=== PATIENT | female | born 2005 | race Two or more races ===

== ENCOUNTER 2025-01-12 21:17 | Emergency (ER) | payer MEDICAID, SELFPAY ==
[2025-01-12 21:18] VITALS: BMI 33.6
--- NOTE | 2025-01-12 21:37 | EDNOTE_ITS ---
ED OB Contraction Preg RMI/HPI General Chief complaint: Vaginal Bleeding Stated complaint: 3WKS PP WITH VAG BLEEDING AND PRESSURE Time Seen by Provider: 01/12/25 21:20 Arrival date/time: 01/12/25 21:17 RME / HPI RME / HPI Narrative: See [facility] for Dr. Henson's HPI documentation. Related Data Previous Rx's ?Medication ?Instructions ?Recorded cefdinir 300 mg capsule 300 mg PO BID #14 caps 01/13 hydrocodone 5 mg-acetaminophen 325 2 tab PO Q8H PRN pa in #10 tabs 01/13/25 mg tablet ketorolac 10 mg tablet 10 mg PO Q8H PRN pain 5 days #10 01/13/25 tabs ondansetron 4 mg disintegrating 4 mg PO TID PRN nausea and 01/13/25 tablet vomiting 30 days #10 tabs Allergies Allergy/AdvReac Type Severity Reaction Status Date / Time No Known Allergies Allergy Mild Uncoded 09/16/07 22:18 Review of Systems Review of Systems Systems Reviewed: All systems reviewed, normal except as documented ED Exam Narrative Physical exam: See [facility] for Dr. Henson's physical exam documentation. Course Quality Measures none Orders Category Date Time Status CT abdomen pelvis wo con Stat Exams 01/12/25 21:43 Completed US pelvic complete Stat Exams 01/12/25 22:18 Completed Bilirubin,Direct Stat Lab 01/12/25 22:04 Completed Blood Culture (Lab) Stat Lab 01/12/25 22:04 Received CBC Stat Lab 01/12/25 22:04 Completed CMP [Comprehensive Metabolic Panel] Stat Lab 01/12/25 22:04 Completed CRP [C-Reactive Protein] Stat Lab 01/12/25 22:04 Completed ESR [Sed Rate (ESR)] Stat Lab 01/12/25 22:04 Completed Lactate (Lactic Acid) Stat Lab 01/12/25 22:04 Completed Lipase Stat Lab 01/12/25 22:04 Completed Magnesium Stat Lab 01/12/25 22:04 Completed Procalcitonin Stat Lab 01/12/25 22:04 Completed TSH [Thyroid Stimulating Hormone] Stat Lab 01/12/25 22:04 Completed UA, C/S IF [Urinalysis, C/S if Indicated] Stat Lab 01/12/25 22:44 Completed Urine Culture Stat Lab 01/12/25 22:44 Received HYDROcodone*/APAP 5/325 [[place] 5/325] Med 01/12/25 21:42 Discontinued 2 tab PO X1 ONE Ondansetron Odt [Zofran Odt] Med 01/12/25 21:42 Discontinued 4 mg PO X1 ONE cefTRIAXone [Rocephin] 1,000 mg Med 01/13/25 00:07 Discontinued Lidocaine 1% 20 ml [Xylocaine 1% 20 ML] 2.1 ml IM X1 Vital Signs Vital signs: Vital Signs Temperature 98.2 F 01/12/25 21:38 Pulse Rate 80 01/12/25 21:38 Respiratory Rate 18 01/12/25 21:38 Blood Pressure 112/77 01/12/25 21:38 Pulse Oximetry (%) 97 01/12/25 21:38 Oxygen Delivery Method Room Air 01/12/25 21:38 Vaginal Bleeding MDM Narrative MDM Narrative: This section includes all my notes and documentations, including HPI, PE, and ED course. Deshawn Henson MD HPI: 19yo female who is 3 weeks (12/25/24) here with lower abdominal pain, nausea, and vaginal spotting since yesterday. No vomiting or fever. No other complaints reported. ROS: All negative except as documented in HPI. Physical Exam: General: Alert and oriented. No acute distress when remaining still. Eyes: Conjunctivae and lids clear. ENT: No nasal congestion. Neck: Supple. Heart: RRR. Lungs: No respiratory distress. Good air movement. No rhonchi, wheezing, rales. Abdomen: Soft with suprapubic tenderness. Normal bowel sounds. No distension. No rebound or guarding. Back: No CVA tenderness. Skin: Warm and dry. Neuro: Alert and oriented X 3. I reviewed all diagnostic test results. My review of the pelvic US report is NAD. My review of the CT abdomen pelvis report is NAD. Blood tests unremarkable. UA remarkable for positive leukocyte esterase, 12 RBCs, 70 WBCs, and bacteria. At this point, diagnoses include: UTI Treatment here included: [place] Zofran Rocephin Recommend outpatient management. Based on my best medical judgment, made decision no further evaluation or treatment indicated at this time. Patient understands and agrees to the discharge instructions customized and printed, see below. Discharge instructions from Dr. Henson: 1. After evaluation, you have severe cystitis (bladder infection). 2. Take cefdinir to kill the germs causing the infection. 3. For good hydration, increase oral fluid and maintain clear urine. If dark or yellow, increase oral fluid. Zofran for nausea/vomiting. Toradol and [place] for pain. 4. See a private doctor on 01/16/2025 for recheck. Ask to check the final urine culture results from today to make sure cefdinir doesn't need to be changed due to resistance. 5. Seek immediate medical care with worsening, fever, or with any concerns. Deshawn Henson MD Patient data External records reviewed:: [facility] previous records (Per chart review, patient has no previous ED visits or admissions to this facility.) Clinical information provided by:: patient Social determinants that could affect healthcare access:: none Patient has the following chronic illnesses:: none How is presenting disease/condition affected by chronic disease/condition?: no chronic disease Evaluation data The following diagnostics were reviewed and interpreted by me:: lab results and radiology exam(s) Lab and/or radiology exams considered but not ordered:: none Interpretation Summary: I reviewed all diagnostic test results. My review of the pelvic US report is NAD. My review of the CT abdomen pelvis report is NAD. Blood tests unremarkable. UA remarkable for positive leukocyte esterase, 12 RBCs, 70 WBCs, and bacteria. Medications / Prescriptions Medications or Prescriptions considered but not ordered:: none Medication administrations:: Medication Administration History Discontinued Medications Hydrocodone Bitart/Acetaminophen (Hydrocodone/Apap 5/325 Tablet) 2 tab PO X1 ONE Stop: 01/12/25 21:43 Last Admin: 01/12/25 22:00 Dose: 2 tab Documented By: CHITRA Ceftriaxone Sodium 1,000 mg/ (Lidocaine HCl 2.1 ml) 0 mg IM X1 ONE Stop: 01/13/25 00:08 Last Admin: 01/13/25 00:14 Dose: 1,000 mg Documented By: CHITRA Comments: Ondansetron HCl (Ondansetron Odt 4 Mg Tabrap) 4 mg PO X1 ONE; Protocol Stop: 01/12/25 21:43 Last Admin: 01/12/25 22:01 Dose: 4 mg Documented By: CHITRA Epstein Zofran Rocephin Consultations Consultation(s) initiated? (list below): No Diagnosis Vaginal Bleeding Differential Diagnosis: dysfunctional uterine bleeding and other (UTI, pyelonephritis, appendicitis, ovarian torsion, complication) Most likely diagnosis given after review of the tests above:: UTI Admission Indicated Admission indicated?: not indicated Explain why admission is indicated or not indicated:: With significant improvement and no condition needing emergent intervention, there was no indication for admission. Admission Request Was there a request for admission?: No Disposition Plan Disposition Plan: Discharge Discharge Attestation Discharge Attestation: The patient and all family members were given an opportunity to ask questions and understood the discharge instructions. Discharge instructions specifically effects, indications for sooner follow up or return to the emergency department, and the expected course of current diagnosis. Patient condition: Stable Discharge Plan Plan Patient Disposition: HOME (Self Care) Prescriptions/Referrals Prescriptions/Med Rec: New hydrocodone-acetaminophen 5-325 mg tablet 2 tab PO Q8H MDD 6 PRN (Reason: pain) Qty: 10 0RF ketorolac 10 mg tablet 10 mg PO Q8H PRN (Reason: pain) 5 Days Qty: 10 0RF ondansetron 4 mg tablet,disintegrating 4 mg PO TID PRN (Reason: nausea and vomiting) 30 Days Qty: 10 0RF cefdinir 300 mg capsule 300 mg PO BID Qty: 14 0RF Referrals: Temporary Provider,ED [Physician, Emergency Medicine] - In 1 week Problem List Clinical Impression: UTI (urinary tract infection) Patient/Caregiver Discharge Instructions Discharge Activity: activity as tolerated Education Materials: ED CYSTITIS Female Adult Additional Instructions: Discharge instructions from Dr. Henson: 1. After evaluation, you have severe cystitis (bladder infection). 2. Take cefdinir to kill the germs causing the infection. 3. For good hydration, increase oral fluid and maintain clear urine. If dark or yellow, increase oral fluid. Zofran for nausea/vomiting. Toradol and [place] for pain. 4. See a private doctor on 01/16/2025 for recheck. Ask to check the final urine culture results from today to make sure cefdinir doesn't need to be changed due to resistance. 5. Seek immediate medical care with worsening, fever, or with any concerns. Print Language: Occitan Stand Alone Forms: Effie Award Info., Patient Portal Info Letter
[2025-01-12 21:38] VITALS: BP 112/77; PULSE 80; RESP 18; TEMP 36.8; O2SAT 97
--- NOTE | 2025-01-12 21:43 | XR_ITS ---
Examination: CT abdomen and pelvis without contrast. Coronal 3-D reconstructions. Sagittal 2-D reconstructions. Date and time of exam:January 12, 2025, 2221 hrs. Indications: 3 weeks with vaginal bleeding and pressure nausea vomiting abdominal pain CTDI: vol (mGy): 10.5 DLP: (mGycm): 570 Technique: Axial images of the abdomen have been obtained, 3 mm slice thickness Intravenous contrast material has not been administered. Low dose protocols were performed. One or more of the following dose reduction techniques were used; automated exposure control, adjustment of the mA and/or KV according to patient size, use of iterative reconstruction technique. Findings: No focal liver or splenic lesion Contracted gallbladder No pancreatic or adrenal mass No renal or ureteral calculi, no hydronephrosis Aorta normal size enlarged uterus, no pelvic hematoma Mild thickening of the anterior urinary bladder image 193 Osseous structures intact No pericecal inflammatory change Impression: No renal or ureteral calculi, no hydronephrosis No CT findings of appendicitis bowel obstruction or diverticulitis enlarged uterus Cystitis pattern
[2025-01-12] MEDS: HYDROcodone/APAP 5/325 TABLET 2 TAB PO (22:00)
[2025-01-12] MEDS: ONDANSETRON ODT 4 MG TABRAP PO (22:01)
--- NOTE | 2025-01-12 22:18 | XR_ITS ---
Examination: Pelvic ultrasound, transabdominal, complete Technique: Transabdominal ultrasound of the pelvis performed using grayscale imaging Date and time of exam: January 12, 2025 1106 hrs. Indications: Pelvic pain and vaginal bleeding beginning 3 weeks ago Findings: Uterus 15.3 cm no retained products of conception or intrauterine gestation Endometrial stripe 0.3 cm Right ovary 2.8 cm arterial flow Left ovary 2.2 cm arterial flow Impression: No intrauterine gestation or retained products of conception
[2025-01-12 22:19] LABS: Lactate (Lactic Acid) 1.2 mMol/L (0.4-2.0)
[2025-01-12 22:24] LABS: Basophils # (Auto) 0.0 Thou/mm3 (0.0-0.2); Basophils % (Auto) 0 % (0-2.5); Eosinophils # (Auto) 0.2 Thou/mm3 (0.0-0.5); Eosinophils % (Auto) 2 % (0-10); Hematocrit 42.9 % (36.0-46.0); Hemoglobin 13.8 g/dL (12.0-16.0); Immature Granulocytes Auto 0.02 Thou/mm3 (0.00-0.00); Lymphocytes # (Auto) 2.9 Thou/mm3 (1.0-4.8); Lymphocytes % (Auto) 30 % (10-50); Mean Corpuscular HGB Conc 32.2 g/dl (31.0-37.0); Mean Corpuscular Hemoglobin 27.0 pg (25.0-35.0); Mean Corpuscular Volume 84 fL (80-100); Monocytes # (Auto) 0.7 Thou/mm3 (0.0-0.8); Monocytes % (Auto) 7 % (0-12); Neutrophils # (Auto) 5.9 Thou/mm3 (1.8-7.7); Neutrophils % (Auto) 61 % (37-80); Nucleated Red Blood Cell # 0.00 Thou/mm3 (0.00-0.00); Nucleated Red Blood Cell % 0 /100 WBC (0); Platelet Count 389 Thou/mm3 (140-440); RDW Standard Deviation 39.8 fL (36.4-46.3); Red Blood Count 5.11 Miln/mm3 (4.00-5.20); White Blood Count 9.7 Thou/mm3 (3.6-11.0)
[2025-01-12 22:53] LABS: Sed Rate (ESR) 26 mm/hr (0-20)
[2025-01-12 23:04] LABS: Collection Type, Urine Clean Catch
[2025-01-12 23:06] LABS: Alanine Aminotransferase 48 U/L (10-49); Albumin, Serum 4.7 gm/dL (3.5-5.0); Albumin/Globulin Ratio 1.6 (1.2-2.2); Alkaline Phosphatase 119 U/L (46-116); Anion Gap 10 (7-16); Aspartate Amino Transferase 29 U/L (0-34); BUN/Creatinine Ratio 10 Ratio (12-20); Bilirubin,Direct < 0.1 mg/dL (0.0-0.3); Bilirubin,Total 0.2 mg/dL (0.3-1.2); Blood Urea Nitrogen 10 mg/dL (9-23); C-Reactive Protein 1.4 mg/dL (0.0-0.9); Calcium 9.8 mg/dL (8.3-10.6); Calcium (Corrected) 9.8 mg/dL (8.5-10.1); Carbon Dioxide 26.6 mMol/L (20.0-31.0); Chloride 106 mMol/L (98-107); Creatinine (Component) 1.0 mg/dL (0.6-1.3); Estimated Creatinine Clearance 89.1 mL/min (>60); Globulin 3.0 gm/dL (2.3-3.5); Glucose 81 mg/dL (74-106); Lipase 36 U/L (12-53); Magnesium 2.0 mg/dL (1.6-2.6); Osmolality,Calculated 282 (275-295); Potassium 4.2 mMol/L (3.4-5.1); Procalcitonin < 0.04 ng/ml (0.0-0.49); Sodium 143 mMol/L (136-145); Thyroid Stimulating Hormone 3.19 uIU/mL (0.55-4.78); Total Protein 7.7 gm/dL (5.7-8.2); eGFR > 60 See Note
[2025-01-12 23:21] LABS: Bacteria,Urine Rare; Bilirubin,Urine Negative (Negative); Blood,Urine Trace (Negative); Clarity,Urine Clear (Clear/Hazy); Color,Urine Lt-Yellow (Lt Yel-Yel); Glucose, Urine Negative (Negative); Ketones,Urine Negative (Negative); Leukocyte Esterase,Urine Positive (Negative); Nitrite,Urine Negative (Negative); PH,Urine 5.5 (5.0-7.0); Protein,Urine Negative (Neg - Trace); RBC,Urine 12 /hpf (0-3); Specific Gravity,Urine 1.015 (1.001-1.035); Squamous Epithelial Cell,Urine 3 /hpf (0-5); Urobilinogen,Urine Negative mg/dL (0.0-1.0); WBC,Urine 70 /hpf (0-5)
[2025-01-12 23:22] LABS: Culture Indicated,Urine Yes
[2025-01-13] MEDS: cefTRIAXone 1,000 MG, LIDOCAINE 1% 20 ML 2.1 ML IM (00:14)
[2025-01-13 00:18] VITALS: BP 116/76; PULSE 70; RESP 16; TEMP 36.7; O2SAT 98
== END 2025-01-13 00:19 | disposition home or self-care (01) ==
PROVIDERS: Emergency Provider Emergency Medicine; PCP Family Medicine
DX: O23.41 Unspecified infection of urinary tract in pregnancy, first trimester (principal); N39.0 Urinary tract infection, site not specified; Z3A.01 Less than 8 weeks gestation of pregnancy
CPT/HCPCS: 36415; 74176; 76856; 80053; 81001; 82248; 83605; 83690; 83735; 84145; 84443; 85025; 85652; 86140; 87040; 87086; 96372; 99284; J0696; J3490; Q0162; A9270

== ENCOUNTER 2025-01-13 14:10 | Emergency (ER) | payer MEDICAID, SELFPAY ==
[2025-01-13 14:16] VITALS: BP 115/74; PULSE 94; RESP 20; TEMP 37; O2SAT 96; BMI 35.8
--- NOTE | 2025-01-13 14:36 | EDNOTE_ITS ---
<Statement entered by Laura Ferraro MD - 01/14/25 16:02> As co-signing physician, I was present and available for consult prn. I concur with the plan and care as documented by the midlevel provider. ED Female Urogenital RME/HPI General Chief complaint: General Adult/Misc Complain Stated complaint: PHARMACY TOLD PT TO COME TO ER FOR ANOTHER SHOT Time Seen by Provider: 01/13/25 14:20 Source: patient Arrival date/time: 01/13/25 14:10 19-year-old female with no known medical history presents to the emergency room after her pharmacy told her to come to the emergency room for another shot medication since I did not have a prescription for Toradol. Mode of arrival: ambulatory Limitations: no limitations Related Data Previous Rx's ?Medication ?Instructions ?Recorded cefdinir 300 mg capsule 300 mg PO BID #14 caps 01/13 hydrocodone 5 mg-acetaminophen 325 2 tab PO Q8H PRN pa in #10 tabs 01/13/25 mg tablet ketorolac 10 mg tablet 10 mg PO Q8H PRN pain 5 days #10 01/13/25 tabs ondansetron 4 mg disintegrating 4 mg PO TID PRN nausea and 01/13/25 tablet vomiting 30 days #10 tabs Allergies Allergy/AdvReac Type Severity Reaction Status Date / Time No Known Allergies Allergy Verified 01/13/25 14:47 Review of Systems Review of Systems Systems Reviewed: All systems reviewed, normal except as documented Constitutional Constitutional: Reports system reviewed and no additional complaints, except as documented, Denies fatigue, Denies fever(s), Denies headache(s) and Denies weakness Eyes Eyes: Reports system reviewed and no additional complaints, except as documented, Denies blurry vision and Denies change in vision ENT Ears, Nose, Mouth, and Throat: Reports system reviewed and no additional complaints, except as documented, Denies otalgia, Denies headache(s), Denies nasal congestion, Denies throat swelling and Denies vertigo Cardiovascular Cardiovascular: Reports system reviewed and no additional complaints, except as documented, Denies chest pain, Denies dyspnea and Denies dyspnea on exertion Respiratory Respiratory: Reports system reviewed and no additional complaints, except as documented, Denies chest congestion, Denies cough, Denies dyspnea, Denies dyspnea on exertion and Denies wheezing Gastrointestinal Gastrointestinal: Reports system reviewed and no additional complaints, except as documented, Denies abdominal pain, Denies cramping, Denies nausea and Denies vomiting Genitourinary Genitourinary: Reports system reviewed and no additional complaints, except as documented and Reports dysuria Musculoskeletal Musculoskeletal: Reports system reviewed and no additional complaints, except as documented and Denies back pain Integumentary/Breasts Skin/Breast: Reports system reviewed and no additional complaints, except as documented and Denies wounds Neurologic Neurologic: Reports system reviewed and no additional complaints, except as documented, Denies confusion, Denies headache(s), Denies lack of coordination, Denies vertigo and Denies weakness Psychiatric Psychiatric: Reports system reviewed and no additional complaints, except as documented, Denies anxiety, Denies confusion, Denies depression, Denies paranoia, Denies suicidal ideation and Denies tactile hallucinations Endocrine Endocrine: Reports system reviewed and no additional complaints, except as documented and Denies fatigue Hematologic/Lymphatic Hematologic/Lymphatic: Reports system reviewed and no additional complaints, except as documented and Denies lymphadenopathy Allergic/Immunologic Allergic/Immunologic: Reports system reviewed and no additional complaints, except as documented, Denies throat swelling, Denies urticaria and Denies wheezing Past Medical History Social History SMOKING STATUS: Never smoker ED Exam General Limitations: Present no limitations General appearance: Present alert and in no apparent distress Head Head exam: Present atraumatic Eye Eye exam: Present normal appearance, PERRL and EOMI ENT ENT exam: Present normal exam, normal oropharynx and mucous membranes moist Neck Neck exam: Present normal inspection, full ROM and trachea midline Chest Chest inspection: Present normal inspection and symmetric chest wall rise Respiratory Respiratory exam: Present normal lung sounds bilaterally Cardiovascular Cardiovascular exam: Present regular rate, normal rhythm and normal heart sounds Abdominal Exam Abdominal exam: Present soft and normal bowel sounds Extremities Exam Extremities exam: Present normal inspection and full ROM Back Exam Back exam: Present normal inspection and full ROM Neurological Exam Neurological exam: Present alert, oriented X3 and CN II-XII intact Psychiatric Psychiatric exam: Present normal affect and normal mood Skin Skin exam: Present warm, dry, intact and normal color Course Quality Measures none Orders Category Date Time Status cefTRIAXone [Rocephin] 1,000 mg Med 01/13/25 14:36 Discontinued Lidocaine 1% 20 ml [Xylocaine 1% 20 ML] 2.1 ml IM X1 Vital Signs Vital signs: Vital Signs Temperature 98.6 F 01/13/25 14:16 Pulse Rate 94 01/13/25 14:16 Respiratory Rate 20 01/13/25 14:16 Blood Pressure 115/74 01/13/25 14:16 Pulse Oximetry (%) 96 01/13/25 14:16 Oxygen Delivery Method Room Air 01/13/25 14:16 Urogenital - Female MDM Narrative MDM Narrative:: 19-year-old female with no known medical history presents to the emergency room after her pharmacy told her to come to the emergency room for another shot medication since I did not have a prescription for Toradol. Patient is hemodynamically stable and in no apparent distress Patient states she was sent to the emergency room by the pharmacy after they did not have any Toradol medication in stock as well as cefdinir in stock. Patient states she was able to go to [facility] to get her cefdinir. A shot of Rocephin was given and the patient was discharged. Patient was educated to sweet pickle maker her antibiotics and pain medication for her UTI diagnosis Patient was discharged and educated to follow-up with primary care provider in the next 24 to 48 hours and return to the emergency room for any evidence of worsening signs or symptoms Patient data External records reviewed:: [facility] previous records Clinical information provided by:: patient Social determinants that could affect healthcare access:: none Patient has the following chronic illnesses:: No chronic illness How is presenting disease/condition affected by chronic disease/condition?: no chronic disease Evaluation data The following diagnostics were reviewed and interpreted by me:: lab results and radiology exam(s) Lab and/or radiology exams considered but not ordered:: Labs and radiology exams considered and ordered Interpretation Summary: N/A Medications / Prescriptions Medications or Prescriptions considered but not ordered:: Medication given Medication administrations:: Medication Administration History Discontinued Medications Ceftriaxone Sodium 1,000 mg/ (Lidocaine HCl 2.1 ml) 0 mg IM X1 ONE Stop: 01/13/25 14:37 Last Admin: 01/13/25 15:13 Dose: 350 mg Documented By: OA Medication given Consultations Consultation(s) initiated? (list below): No Diagnosis Urogenital Female Differential Diagnosis: urinary tract infection, bacterial vaginosis, vaginitis and other (Urinary tract infection) Most likely diagnosis given after review of the tests above:: Urinary tract infection Admission Indicated Admission indicated?: not indicated Admission Request Was there a request for admission?: No Disposition Plan Disposition Plan: Discharge Discharge Attestation Discharge Attestation: The patient and all family members were given an opportunity to ask questions and understood the discharge instructions. Discharge instructions specifically effects, indications for sooner follow up or return to the emergency department, and the expected course of current diagnosis. Patient condition: Stable Discharge Plan Plan Patient Disposition: HOME (Self Care) Discharge Disposition comment: Stable Prescriptions/Referrals Prescriptions/Med Rec: No Action hydrocodone-acetaminophen 5-325 mg tablet 2 tab PO Q8H MDD 6 PRN (Reason: pain) Qty: 10 0RF ketorolac 10 mg tablet 10 mg PO Q8H PRN (Reason: pain) 5 Days Qty: 10 0RF ondansetron 4 mg tablet,disintegrating 4 mg PO TID PRN (Reason: nausea and vomiting) 30 Days Qty: 10 0RF cefdinir 300 mg capsule 300 mg PO BID Qty: 14 0RF Problem List Clinical Impression: UTI (urinary tract infection) Patient/Caregiver Discharge Instructions Education Materials: ED CYSTITIS Female Adult Additional Instructions: Please follow-up with your primary care provider in the next 24 to 48 hours Please take the antibiotics that were prescribed to you For any evidence of worsening signs or symptoms return to the emergency room immediately Print Language: Persian Stand Alone Forms: Effie Award Info., Work/School Release, Patient Portal Info Letter SANDIP/LOR Supervising Physician SANDIP/LOR Supervising Physician: Dr. FERRARO
[2025-01-13] MEDS: cefTRIAXone 1,000 MG, LIDOCAINE 1% 20 ML 2.1 ML IM (15:13)
== END 2025-01-13 15:42 | disposition home or self-care (01) ==
LOC: SERX 15:19
PROVIDERS: Emergency Provider Emergency Medicine
DX: N39.0 Urinary tract infection, site not specified (principal)
CPT/HCPCS: 96372; 99282; J0696; J3490